=== PATIENT | male | born 1985 | race Caucasian/White ===

== ENCOUNTER 2024-11-28 13:13 | Emergency (ER) | payer MEDICAID ==
[~2024-11-28] VITALS: Ht 170.2 cm; Wt 127.0 kg
[2024-11-28 14:02] VITALS: O2SAT 97
[2024-11-28] MEDS: ACETAMINOPHEN 325MG TABLET PO ONE (14:37)
[2024-11-28] MEDS ORDERED: IBUP-2028 MT (15:49)
[2024-11-28] MEDS ORDERED: GUAI400T93 MT (15:49)
[2024-11-28 16:21] VITALS: BP 149/97; PULSE 97; RESP 16; TEMP 37.4; O2SAT 100
[2024-11-28 16:42] LABS: INFLUENZA TYPE A Presumptive Negative (Pres. Neg.); INFLUENZA TYPE B Presumptive Negative (Pres. Neg.)
== END 2024-11-28 16:22 | disposition home or self-care (01) ==
LOC: ER 13:13
DX: B34.9 Viral infection, unspecified (principal); F10.90 Alcohol use, unspecified, uncomplicated; Z79.899 Other long term (current) drug therapy; Y90.9 Presence of alcohol in blood, level not specified
CPT/HCPCS: 71045; 87070; 87430; 87804; 99284